=== PATIENT | female | born 1990 | race Caucasian/White ===

== ENCOUNTER 2023-03-15 01:35 | Emergency (ER) | payer MEDICAID ==
[~2023-03-15] VITALS: Ht 162.6 cm; Wt 80.7 kg
[2023-03-15] MEDS ORDERED: ONDANSETRON ODT 4 MG TAB.RAPDIS ONE (02:28)
[2023-03-15] MEDS ORDERED: LORAZEPAM 1 MG TABLET ONE (02:29)
[2023-03-15] MEDS ORDERED: HYDROCODONE/APAP 10-325 MG TABLET ONE (02:30)
[2023-03-15] MEDS ORDERED: HYDROCODONE/APAP 10-325 MG TABLET PO ONE (02:30)
[2023-03-15] MEDS ORDERED: ONDANSETRON ODT 4 MG TAB.RAPDIS SL ONE (02:30)
[2023-03-15] MEDS ORDERED: LORAZEPAM 0.5 MG TABLET PO ONE (02:30)
[2023-03-15 02:36] LABS: *URINE HCG, QUAL NEGATIVE (NEGATIVE)
[2023-03-15] MEDS ORDERED: HYDR-3980 PO (02:41)
[2023-03-15] MEDS ORDERED: ONDA4TAB11 PO (02:41)
[2023-03-15] MEDS ORDERED: CYCL10TA9 PO (02:41)
[2023-03-15 03:15] VITALS: BP 153/93; O2SAT 99
== END 2023-03-15 03:15 | disposition home or self-care (01) ==
LOC: ER 01:37
DX: M54.50 Low back pain, unspecified (principal); R07.89 Other chest pain; Z79.899 Other long term (current) drug therapy; V49.9XXA Car occupant (driver) (passenger) injured in unspecified traffic accident, initial encounter; Y93.89 Activity, other specified; Y92.410 Unspecified street and highway as the place of occurrence of the external cause; Y99.8 Other external cause status
CPT/HCPCS: 72100; 84703; A4606; A4663; Q0162